=== PATIENT | female | born 1985 | race Caucasian/White ===

== ENCOUNTER 2019-03-29 19:30 | Emergency (ER) | payer OTHER ==
--- NOTE | 2019-03-29 20:16 | EDPHY ---
H & P Stated Complaint: L pointer finger lac Source: Patient Exam Limitations: No limitations - Personal History LMP (Females 10-55): Extended Cycle BCP/Inj Current Tetanus/Diphtheria Vaccine: Yes - Medical/Surgical History Hx Asthma: No Hx Chronic Respiratory Disease: No Hx Diabetes: No Hx Cardiac Disease: No Hx Renal Disease: No Hx Cirrhosis: No Hx Alcoholism: No Hx HIV/AIDS: No Hx Splenectomy or Spleen Trauma: No Other PMH: denies - Social History Smoking Status: Never smoked Time Seen by Provider: 03/29/19 19:58 HPI/ROS: HPI: This is a 33-year-old female who presents with Chief Complaint: Left pointer finger laceration Location: Left pointer finger Quality: Laceration Duration: Prior to arrival Signs and Symptoms: + bleeding, no radiation, no numbness, no weakness, no tingling, no incontinence, no decreased range of motion, no swelling, + pain, no fever Timing: Acute Severity: Mild Context: Patient is right-hand dominant, presents with accidentally cutting her left pointer finger while using a hedge clippers to perform lawn care this evening. She reports that she felt immediate, constant, mild pain immediately started to bleed. She applied direct pressure. Tetanus is up-to-date. Denies radiation, weakness, decreased range of motion. No nail involvement. Modifying Factors: Direct pressure Comment: ROS: A comprehensive 10 system review of systems is otherwise negative aside from elements mentioned in the history of present illness. MEDICAL/SURGICAL/SOCIAL HISTORY: Medical history: Generally healthy. Takes oral control pills. Surgical history: Denies Social history: , nonsmoker. 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 CONSTITUTIONAL: Polite and cooperative adult white female, awake and alert, no obvious distress HEENT: Atraumatic and normocephalic, PERRL, EOMI. Nares patent; no rhinorrhea; no nasal mucosal edema. Tympanic membranes clear. Oropharynx clear, no exudate and moist pink mucosa. Airway patent. No lymphadenopathy. No meningismus. Cardiovascular: Normal S1/S2, regular rate, regular rhythm, without murmur rub or gallop. PULMONARY/CHEST: Symmetrical and nontender. Clear to auscultation bilaterally. Good air movement. No accessory muscle usage. ABDOMEN: Soft, nondistended, nontender, no rebound, no guarding, no peritoneal signs, no masses or organomegaly. No CVAT. EXTREMITIES: 2/2 radial pulses, material control analyst strength 5/5, left index finger shows 3 cm C-shaped laceration, simple, deep on the distal finger pad; sparing the nail. DI P/PIP/MCP joints have full range of flexion and extension with light touch sensation intact. no clubbing, no cyanosis or edema. NEUROLOGICAL: no focal neuro deficits. GCS 15. SKIN: Warm and dry, no erythema. no rash. Good capillary refill. (Rachel Prasad) Constitutional: Initial Vital Signs Temperature (C) 36.5 C 03/29/19 19:31 Heart Rate 92 03/29/19 19:31 Respiratory Rate 18 03/29/19 19:31 Blood Pressure 144/100 H 03/29/19 19:31 O2 Sat (%) 99 03/29/19 19:31 O2 Delivery Mode Room Air Allergies/Adverse Reactions: Penicillins Allergy (Verified 03/29/19 19:33) Home Medications: Medication Instructions Recorded Bcp 03/29/19 Medical Decision Making Procedures: Procedure: Laceration repair. Verbal consent was obtained from the patient. The 3 cm, C-shaped, deep laceration on the left index finger was anesthetized in the usual fashion using 4 mL of 1% lidocaine without epinephrine. The wound was irrigated, draped and explored to its base with a gloved finger. There were no deep structures involved. No tendon injury was identified. The wound was repaired with #7, 5- 0 Prolene simple interrupted pattern. Good hemostasis was achieved and patient tolerated procedure well. Xeroform and clean sterile dressing applied. The procedure was performed by myself. (Rachel Prasad) ED Course/Re-evaluation: Vital signs reviewed and show elevated blood pressure upon arrival. Tetanus is up-to-date. Local anesthesia provided and copiously irrigated. Laceration closed with #7, 5-0 Prolene Xeroform and clean sterile dressing applied Written and verbal wound care instructions provided No signs of neurovascular compromise/tenting of skin/compartment syndrome/ extremities and joints examined above and below area of concern and are neurovascularly intact. This patient was seen under the supervision of my secondary supervising physician. I evaluated and cared for this patient independently. (Rachel Prasad) I did not see this patient while she was in the emergency department. However her care was discussed with the PA while the patient was in the department. I agree with treatment plan management (Armand Carias) Differential Diagnosis: Differential diagnosis includes but is not limited to laceration, nerve injury, tendon injury, nail injury, foreign body. (Rachel Prasad) Departure - Departure Disposition: Home, Routine, Self-Care Clinical Impression: Laceration of index finger of left hand without complication Qualifiers: Encounter type: initial encounter Qualified Code(s): S61.211A - Laceration without foreign body of left index finger without damage to nail, initial encounter Condition: Good Instructions: Care For Your Stitches (ED), Finger Laceration (ED) Additional Instructions: Keep the dressing dry and in place for 48 hours. After 48 hours, you may remove the dressing; wash the site daily with mild soap and water; then pat dry. Apply topical antibiotic ointment and keep covered with sterile dressing until fully healed. Do not soak in a bathtub or go swimming until sutures are removed. Take Tylenol 650 mg every 4 hours and/or Ibuprofen 600 mg every 8 hours with food as needed for pain. Wound Care Follow-Up: Removal of sutures in [ 10-14 ] days. Suture removal is complimentary in uncomplicated cases. Infection or abnormal findings would require reevaluation by the MD. In that case, you may be billed. Return to the ER immediately if you experience redness, red streaks, have fevers /chills, flu like symptoms, limited range of motion, or any other symptoms that concern you. Referrals: Dario Khan MD [Medical Doctor] - As per Instructions
[2019-03-29 21:31] VITALS: BP 116/70
== END 2019-03-29 21:28 | disposition home or self-care (01) ==
PROC: 0HQGXZZ Repair Left Hand Skin, External Approach (ICD-10-PCS; principal; 2019-03-29)
DX: S61.211A Laceration without foreign body of left index finger without damage to nail, initial encounter (principal); W26.8XXA Contact with other sharp object(s), not elsewhere classified, initial encounter; Y93.H2 Activity, gardening and landscaping